=== PATIENT | female | born 1950 | race Caucasian/White ===

== ENCOUNTER → 2017-04-28 | Outpatient (CLI) | payer MEDICARE, OTHER ==
[~2017-04-28] MED LIST: ASPIR 8181 MG PO; CYMBALTA30 MG PO; DIPYRIDAMOLE PO; DOXEPIN 10 MG C10 MG PO; K-DUR 20 MEQ T20 MEQ PO; KLOR-CON SPRIN10 MEQ PO; LAMICTAL100 MG PO; MAXZIDE-25 MG1 EACH PO; NEURONTIN600 MG PO; OXYBUTYNIN 5 MG5 M2 PO; PEPCID20 MG PO; PERCOCET PO; PREDNISONE 20 M20 MG PO; REQUIP1 MG PO; SIMVASTATIN40 MG PO; VENTOLIN HFA 1818 GM INH
== END ==
LOC: M.LAB 04:53
DX: Z01.818 Encounter for other preprocedural examination (principal)

== ENCOUNTER 2017-10-20 16:02 | Emergency (ER) | payer MEDICARE, OTHER ==
[~2017-10-20] VITALS: Ht 162.6 cm; Wt 136.8 kg
[2017-10-20] MEDS ORDERED: ASPIR 8181 MG PO ×2 (16:09→16:22)
[2017-10-20] MEDS ORDERED: DIPYRIDAMOLE PO (16:10)
[2017-10-20] MEDS ORDERED: DOXEPIN 10 MG C10 MG PO (16:11)
[2017-10-20] MEDS ORDERED: PEPCID20 MG PO (16:15)
[2017-10-20] MEDS ORDERED: CYMBALTA30 MG PO (16:15)
[2017-10-20] MEDS ORDERED: NEURONTIN600 MG PO (16:16)
[2017-10-20] MEDS ORDERED: LAMICTAL100 MG PO (16:20)
[2017-10-20] MEDS ORDERED: OXYBUTYNIN 5 MG5 M2 PO (16:20)
[2017-10-20] MEDS ORDERED: KLOR-CON SPRIN10 MEQ PO (16:21)
[2017-10-20] MEDS ORDERED: SIMVASTATIN40 MG PO (16:21)
[2017-10-20] MEDS ORDERED: REQUIP1 MG PO (16:21)
[2017-10-20] MEDS ORDERED: MAXZIDE-25 MG1 EACH PO (16:22)
[2017-10-20] MEDS ORDERED: PERCOCET PO (16:23)
[2017-10-20 16:29] LABS: HEMATOCRIT 37.7 % (37.0-47.0); HEMOGLOBIN 12.4 gm/dL (12.0-15.0); MCH 29.1 pg (26.0-34.0); MCV 88.2 fL (80.0-100.0); MPV 7.7 fl. (7.2-11.1); RBC 4.27 mil/uL (4.20-5.00); RDW-CV 14.3 % (10.5-14.5); WBC 8.8 thou/uL (4.0-11.0)
[2017-10-20 16:37] LABS: ANION GAP 4 mmol/L (7-16); BUN 14 mg/dL (7-18); CALCIUM 8.5 mg/dL (8.5-10.1); CHLORIDE 98 mmol/L (98-107); CO2 37 mmol/L (21-32); CREATININE 0.9 mg/dL (0.6-1.3); GLUCOSE 123 mg/dL (70-99); SODIUM 139 mmol/L (136-145)
[2017-10-20 16:52] LABS: ALBUMIN 3.1 g/dL (3.4-5.0); ALKALINE PHOSPHATASE 77 U/L (46-116); SGOT 22 U/L (15-37); SGPT 14 U/L (30-65); TOTAL BILIRUBIN 0.4 mg/dL (<0.1-1.0); TROPONIN-I LEVEL <0.06 ng/mL (<0.06)
[2017-10-20 16:56] LABS: POTASSIUM 2.5 mmol/L (3.5-5.1)
[2017-10-20] MEDS ORDERED: K-DUR 20 MEQ T20 MEQ PO (19:49)
[2017-10-20] MEDS ORDERED: VENTOLIN HFA 1818 GM INH (19:49)
[2017-10-20] MEDS ORDERED: PREDNISONE 20 M20 MG PO (19:49)
[2017-10-20 20:01] VITALS: BP 97/56
--- NOTE | 2017-10-22 11:06 | EKG ---
[place] [address] ELECTROCARDIOGRAM REPORT Name: JODI OCAMPO Room: 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: : 1950 Requested By: Yeni Moreno Order Number: [id number] MD: Daniel Pride Measurements Intervals [place] Rate: 75 P: -30 [place]: 175 QRS: -12 QRSD: 89 T: -49 QT: 393 QTc: 439 Interpretive Statements Sinus rhythm Low voltage, precordial leads Nonspecific repol abnormality, inferior leads Baseline wander in lead(s) II,III,aVF Compared to ECG 04/14/2008 01:11:07 Sinus bradycardia no longer present Electronically Signed On 10-22-2017 11:06:27 CDT by Daniel Pride [email or web address] <ELECTRONICALLY SIGNED> By: Daniel Pride MD, [facility] 10/22/17 1106 1614 1614 Daniel Pride MD, [facility] /EPI
== END 2017-10-20 20:02 | disposition home or self-care (01) ==
LOC: M.ERS 16:02
PROVIDERS: Nurse Practitioner Family
DX: J20.9 Acute bronchitis, unspecified (principal); E87.6 Hypokalemia; I10 Essential (primary) hypertension; Z88.5 Allergy status to narcotic agent; Z91.040 Latex allergy status; Z88.8 Allergy status to other drugs, medicaments and biological substances

== ENCOUNTER 2019-07-14 14:29 | Observation (INO) | payer MEDICARE, OTHER ==
[~2019-07-14] VITALS: Ht 165.1 cm; Wt 130.7 kg
[~2019-07-14 14:29] MED LIST changes: +DIPYRIDAMOLE 7575 M1 PO; -DIPYRIDAMOLE PO; +KLOR-CON M1010 MEQ PO; -KLOR-CON SPRIN10 MEQ PO; +MAXZIDE 75-501 EACH PO; -MAXZIDE-25 MG1 EACH PO; +REQUIP XL2 MG PO; -REQUIP1 MG PO
[2019-07-14 14:35] VITALS: BP 143/77
[2019-07-14] MEDS ORDERED: DIPYRIDAMOLE 7575 M1 PO (14:51)
[2019-07-14] MEDS ORDERED: LAMOTRIGINE (BL25 MG PO (14:53)
[2019-07-14] MEDS ORDERED: SKELAXIN 800 M800 M1 PO (14:56)
[2019-07-14 15:30] LABS: BE 14.9 mmol/L (-2 to +3); pH 7.481 (7.340-7.450)
[2019-07-14 15:33] LABS: PCO2 56.1 mmHg (35.0-45.0); PO2 58.4 mmHg (75.0-100.0)
[2019-07-14 16:14] LABS: ABSOLUTE BASOPHILS 0.1 thou/uL (0.0-0.2); ABSOLUTE EOSINOPHILS 0.4 thou/uL (0.0-0.7); ABSOLUTE LYMPHOCYTES 2.5 thou/uL (0.8-5.3); ABSOLUTE MONOCYTES 0.6 thou/uL (0.0-1.2); ABSOLUTE NEUTROPHILS 4.1 thou/uL (1.6-8.1); BASOPHILS 1.1 %; EOSINOPHILS 5.2 %; HEMOGLOBIN 14.2 gm/dL (12.0-15.0); LYMPHOCYTES 32.2 %; MCH 29.7 pg (26.0-34.0); MCHC 33.7 g/dL (28.0-37.0); MCV 88.1 fL (80.0-100.0); MONOCYTES 7.9 %; MPV 7.8 fl. (7.2-11.1); NUCLEATED RBCS 0 /100WBC; PLATELET COUNT* 265 thou/uL (150-400); POLYS 53.6 %; RBC 4.77 mil/uL (4.20-5.00); RDW-CV 15.4 % (10.5-14.5); WBC 7.6 thou/uL (4.0-11.0)
[2019-07-14 16:25] LABS: INR 1.1; PROTIME 10.8 Seconds (9.20-11.50)
[2019-07-14 16:26] LABS: POTASSIUM 2.8 mmol/L (3.5-5.1)
[2019-07-14 16:30] LABS: INFLUENZA A ANTIGEN Negative (Negative); INFLUENZA B ANTIGEN Negative (Negative)
[2019-07-14 16:36] LABS: ALBUMIN 3.4 g/dL (3.4-5.0); MAGNESIUM 1.1 mg/dL (1.8-2.4); TOTAL BILIRUBIN 0.5 mg/dL (<0.1-1.0); TOTAL PROTEIN 7.3 g/dL (6.4-8.2)
[2019-07-14 20:37] VITALS: BP 111/59
[2019-07-14 20:45] VITALS: BP 137/86
[2019-07-14 22:52] LABS: URINE BILIRUBIN NEGATIVE (Negative); URINE BLOOD NEGATIVE (Negative); URINE CLARITY CLEAR; URINE COLOR YELLOW; URINE GLUCOSE-RANDOM NEGATIVE (Negative); URINE KETONES NEGATIVE (Negative); URINE LEUKOCYTES-REFLEX NEGATIVE (Negative); URINE NITRITE-REFLEX NEGATIVE (Negative); URINE PROTEIN NEGATIVE (Negative); URINE SPECIFIC GRAVITY 1.025 (1.005-1.030); URINE UROBILINOGEN 0.2 E.U./dl (0.2-1.0)
[2019-07-15 00:02] VITALS: BP 122/72
[2019-07-15 04:25] VITALS: BP 136/75
[2019-07-15 04:44] LABS: HEMATOCRIT 40.4 % (37.0-47.0); HEMOGLOBIN 13.6 gm/dL (12.0-15.0); MCH 29.8 pg (26.0-34.0); MCHC 33.6 g/dL (28.0-37.0); MCV 88.6 fL (80.0-100.0); MPV 7.5 fl. (7.2-11.1); RBC 4.56 mil/uL (4.20-5.00); RDW-CV 15.5 % (10.5-14.5); WBC 7.7 thou/uL (4.0-11.0)
[2019-07-15 04:52] LABS: CALCIUM 8.1 mg/dL (8.5-10.1); CREATININE 1.1 mg/dL (0.6-1.3)
[2019-07-15 04:53] LABS: POTASSIUM 4.1 mmol/L (3.5-5.1)
[2019-07-15 08:00] VITALS: BP 126/70
[2019-07-15 12:00] VITALS: BP 135/68
[2019-07-15] MEDS ORDERED: MUCINEX1200 MG PO (13:07)
[2019-07-15] MEDS ORDERED: PROAIR HFA8.5 GM INH (13:07)
[2019-07-15] MEDS ORDERED: NEBULIZER MISCELL (13:07)
[2019-07-15] MEDS ORDERED: IPRAT-ALBUT 0.5-3 ML INH (13:07)
[2019-07-15] MEDS ORDERED: MEDROL DOSPAK21 TA1 PO (13:07)
[2019-07-15] MEDS ORDERED: SINGULAIR 10 MG10 M1 PO (13:07)
[2019-07-15 13:47] VITALS: BP 135/68
--- NOTE | 2019-07-17 16:40 | EKG ---
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[place] : 1950 Requested By: Nora Echavarria Order Number: [id number] MD: Calvin Ivory Measurements Intervals [place] Rate: 77 P: 34 [place]: 148 QRS: 1 QRSD: 110 T: 28 QT: 407 QTc: 461 Interpretive Statements Sinus rhythm Low voltage, precordial leads Borderline repolarization abnormality Baseline wander in lead(s) II,III,aVF,V3,V4 Compared to ECG 10/20/2017 16:14:56 No significant changes Electronically Signed On 07-17-2019 16:39:24 FLY WORKER by Calvin Ivory [email or web address] <ELECTRONICALLY SIGNED> By: Calvin Ivory MD, [facility] 07/17/19 1639 1446 1446 Calvin Ivory MD, [facility] /EPI
== END 2019-07-15 15:00 | disposition home or self-care (01) ==
LOC: M.ERS 14:29 → M.TBA-ER 16:42 → M.2W 16:42
PROVIDERS: Personal Emergency Response Attendant; ADMIT Family Medicine
DX: J96.01 Acute respiratory failure with hypoxia (principal); J96.02 Acute respiratory failure with hypercapnia; J20.8 Acute bronchitis due to other specified organisms; E87.6 Hypokalemia; E83.42 Hypomagnesemia; I10 Essential (primary) hypertension; I25.2 Old myocardial infarction; F32.9 Major depressive disorder, single episode, unspecified; G62.9 Polyneuropathy, unspecified; Z23 Encounter for immunization

== ENCOUNTER 2020-04-26 11:22 | Emergency (ER) | payer MEDICARE, OTHER ==
[~2020-04-26] VITALS: Ht 165.1 cm; Wt 127.0 kg
[~2020-04-26 11:22] MED LIST changes: +IPRAT-ALBUT 0.5-3 ML INH; +LAMOTRIGINE (BL25 MG PO; +MEDROL DOSPAK21 TA1 PO; +MUCINEX1200 MG PO; +NEBULIZER MISCELL; +PROAIR HFA8.5 GM INH; +SINGULAIR 10 MG10 M1 PO; +SKELAXIN 800 M800 M1 PO
[2020-04-26] MEDS ORDERED: CALCIUM 500 +1 EAC5 PO (11:40)
[2020-04-26] MEDS ORDERED: AGGRENOX 25 MG1 EACH PO (11:40)
[2020-04-26] MEDS ORDERED: CYMBALTA30 MG PO (11:41)
[2020-04-26] MEDS ORDERED: VITAMIN D2 (11:41)
[2020-04-26] MEDS ORDERED: DOXEPIN HC10 MG/1 ML PO (11:41)
[2020-04-26] MEDS ORDERED: GABAPENTIN800 M1 PO (11:42)
[2020-04-26] MEDS ORDERED: LAMICTAL ODT100 MG PO (11:42)
[2020-04-26] MEDS ORDERED: GENTAMICIN OPH3.5 GM (11:42)
[2020-04-26] MEDS ORDERED: OXYBUTYNIN 5 MG5 M2 (11:43)
[2020-04-26] MEDS ORDERED: SKELAXIN 800 M800 M1 (11:43)
[2020-04-26] MEDS ORDERED: OMEPRAZOLE 20 M20 M1 PO (11:43)
[2020-04-26] MEDS ORDERED: PERCOCET 5-3251 EACH PO (11:44)
[2020-04-26] MEDS ORDERED: REQUIP 1 MG TABL1 M1 PO (11:44)
[2020-04-26] MEDS ORDERED: KLOR-CON 10 ER10 MEQ PO (11:44)
[2020-04-26] MEDS ORDERED: ZOCOR 20 MG TAB20 M1 PO (11:45)
[2020-04-26] MEDS ORDERED: ZOFRAN ODT4 MG SUBLING (12:25)
[2020-04-26] MEDS ORDERED: KEFLEX500 M1 PO (12:25)
[2020-04-26 12:58] VITALS: BP 125/40
--- NOTE | 2020-04-27 12:44 | EKG ---
[place] [address] ELECTROCARDIOGRAM REPORT Name: JODI OCAMPO Room: [facility]#: [id number] Admission: 04/26/20 Attend Phys: Discharge: 04/26/20 Date of : 46 Date of Service: 04/26/20 1153 Report #: [id number] THIS REPORT FOR: //name// 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: Manager Channel: MS : 1950 Requested By: Partha Mathur Order Number: [id number] MD: Aidan Meneses Measurements Intervals [place] Rate: 68 P: 26 [place]: 168 QRS: 15 QRSD: 126 T: 34 QT: 413 QTc: 440 Interpretive Statements Sinus rhythm Nonspecific intraventricular conduction delay Baseline wander in lead(s) II,III,aVF Compared to ECG 07/14/2019 14:46:12 Intraventricular conduction delay now present Electronically Signed On 04-27-2020 12:44:35 CHO[employer]AMER by Aidan Meneses [email or web address] <ELECTRONICALLY SIGNED> By: Aidan Meneses MD, FACC 04/27/20 1244 1153 1153 Aidan Meneses MD, FAC /EPI
== END 2020-04-26 12:59 | disposition home or self-care (01) ==
LOC: M.ERS 11:22
DX: I80.8 Phlebitis and thrombophlebitis of other sites (principal); Z20.828 Contact with and (suspected) exposure to other viral communicable diseases; I10 Essential (primary) hypertension; G62.9 Polyneuropathy, unspecified; G25.81 Restless legs syndrome; Z91.040 Latex allergy status; Z88.5 Allergy status to narcotic agent; Z88.8 Allergy status to other drugs, medicaments and biological substances; Z90.49 Acquired absence of other specified parts of digestive tract; Z86.73 Personal history of transient ischemic attack (TIA), and cerebral infarction without residual deficits